=== PATIENT | female | born 1965 | race Hispanic/Latino ===

== ENCOUNTER 2022-12-24 07:11 | Emergency (ER) | payer BC ==
[~2022-12-24] VITALS: Ht 162.6 cm; Wt 77.1 kg
[~2022-12-24 07:11] MED LIST: IBUPROFEN400 MG PO; MELOXICAM7.5 MG PO
[2022-12-24] MEDS ORDERED: ATORVASTATIN CA20 MG PO (07:32)
[2022-12-24] MEDS ORDERED: CYMBALTA30 MG PO (07:32)
[2022-12-24] MEDS ORDERED: GABAPENTIN300 MG PO (07:32)
[2022-12-24] MEDS ORDERED: OMEPRAZOLE40 MG PO (07:32)
[2022-12-24] MEDS ORDERED: METFORMIN HCL500 MG PO (07:32)
[2022-12-24] MEDS ORDERED: VITAMIN D PO (07:32)
[2022-12-24] MEDS ORDERED: DEXAMETHASONE SOD PHOS 10 MG/1 ML VIAL IM ONE (07:45)
[2022-12-24] MEDS ORDERED: BENZONATATE100 MG PO (07:54)
[2022-12-24] MEDS ORDERED: PREDNISONE20 MG PO (07:54)
[2022-12-24] MEDS ORDERED: AUGMENTIN 500-1 EACH PO (07:56)
== END 2022-12-24 08:34 | disposition home or self-care (01) ==
LOC: ER 07:17
DX: R05.9 Cough, unspecified (principal); J32.9 Chronic sinusitis, unspecified; J30.9 Allergic rhinitis, unspecified; Z20.822 Contact with and (suspected) exposure to COVID-19
CPT/HCPCS: 83518; 87070; 99283; J1100; U0002